=== PATIENT | female | born 1980 | race Caucasian/White ===

== ENCOUNTER → 2016-11-02 | Outpatient (REF) | payer OTHER | LOC: M LAB REF 09:48 | PROVIDERS: ATTEND Physician Assistant | DX: R50.9 Fever, unspecified (principal) ==

== ENCOUNTER → 2016-12-09 | Outpatient (CLI) | payer OTHER ==
[~2016-12-09] VITALS: Ht 160 cm; Wt 59.0 kg
[~2016-12-09] MED LIST: CALC1TAB30 PO; DICY10CA13 PO; HUMI40KI SC; IMUR50TA PO; LIDOCAINE 2% INJ 100 MG/5 ML SDV (FOR ANES.) As Ordered ONE; LISI10TA4 PO; MULT1TAB10 PO; NS 1,000 ML IV SCH; PROPOFOL 200 MG/20 ML VIAL As Ordered ONE; SPIR50TA2 PO; TRAZ100T4 PO; ZINC30TA3 PO
--- NOTE | 2016-12-09 14:19 | ROOR ---
Patient Name: Jill Westbrook Procedure Date: 12/09/2016 1:48 PM Date of : 1980 Age: 36 Room: [facility] Gender: Female Note Status: Finalized Procedure: Colonoscopy Indications: Personal history of Crohn's disease Providers: Eder LLOYD MD Referring MD: RHODA DUONG MD Requesting Provider: Medicines: Monitored Anesthesia Care Complications: No immediate complications. Procedure: Pre-Anesthesia Assessment: - The heart rate, respiratory rate, oxygen saturations, blood pressure, adequacy of pulmonary ventilation, and response to care were monitored throughout the procedure. The Colonoscope was introduced through the anus and advanced to the ileocolonic anastomosis. The colonoscopy was performed without difficulty. The patient tolerated the procedure well. The quality of the bowel preparation was good. Findings: The perianal and digital rectal examinations were normal. There was evidence of a prior end-to-end ileo-colonic anastomosis in the ascending colon. This was patent and was characterized by erosion and ulceration. The anastomosis was traversed. This was biopsied with a cold forceps for histology. The exam was otherwise without abnormality. Impression: - Patent end-to-end ileo-colonic anastomosis, characterized by 3 shallow erosions/superficial ulceration. Biopsied. - Anastomosis is otherwise widely patent and healthy in appearance. - The colon examination was otherwise normal - The examined portion of the bogdan-terminal ileum is normal for about 15 cm. . Recommendation: - Continue present medications. - Await pathology results. - Return to my office as previously scheduled. - As you are on both Imuran and Humira, you will need blood work and office visit every 1-2 months. Eder Lloyd MD Eder LLOYD MD 12/09/2016 2:19:09 PM This report has been signed electronically. Number of Addenda: 0 Note Initiated On: 12/09/2016 1:48 PM Estimated Blood Loss: Estimated blood loss: none.
[2016-12-09 14:32] VITALS: BP 105/61
== END ==
LOC: M OPP 11:36
PROVIDERS: ATTEND Internal Medicine Gastroenterology
DX: Z87.19 Personal history of other diseases of the digestive system (principal); K92.2 Gastrointestinal hemorrhage, unspecified; Z98.0 Intestinal bypass and anastomosis status; Z86.14 Personal history of Methicillin resistant Staphylococcus aureus infection; Z80.0 Family history of malignant neoplasm of digestive organs; Z79.899 Other long term (current) drug therapy

== ENCOUNTER → 2017-01-21 | Outpatient (CLI) | payer OTHER ==
[~2017-01-21] MED LIST changes: -LIDOCAINE 2% INJ 100 MG/5 ML SDV (FOR ANES.) As Ordered ONE; +NEOSPORIN OINT 0.9 GM PKT (FLOOR STOCK) As Ordered ONE; -NS 1,000 ML IV SCH; -PROPOFOL 200 MG/20 ML VIAL As Ordered ONE; +SILVER NITRATE APPLICATOR As Ordered ONE
--- NOTE | 2017-01-22 06:21 | REP ---
Clinical: Irregular menstrual bleeding. Evaluation for polyp. Technique: Transvaginal ultrasound examination with color Doppler evaluation of the ovaries was performed in conjunction with Dr. Bautista for hysterosonogram. A 5-Thai catheter was used along with 60 ml of saline injection into the endocervical canal. Examination was performed without complications. Findings: Heterogeneous anteverted uterus measures 8.1 x 3.8 x 4.9 cm. The endometrial complex excluding fluid measures 14.2 mm in thickness with a large endometrial polyp measuring 16 x 10 x 15 mm. Right ovary is normal in vascularity measuring 7.1 x 4.8 x 6.1 cm; RI equal 0.61, and includes 6.9 x 4.3 x 6.0 cm complex cyst with septations. Left ovary is normal in appearance and vascularity measuring 2.9 x 1.6 x 2.7 cm; RI equal 0.62. No pelvic fluid or adnexal mass lesion. Impression: 1. Examination demonstrates a 16 mm endometrial polyp along with 6.9 cm septated complex right ovarian cyst. Signed by Raleigh Cordova MD 01/22/2017 06:12 A
== END | disposition home or self-care (01) ==
LOC: M RADPRO 14:37
PROVIDERS: ATTEND Student in an Organized Health Care Education/Training Program
DX: N84.0 Polyp of corpus uteri (principal); N83.291 Other ovarian cyst, right side

== ENCOUNTER → 2017-01-27 | Outpatient (CLI) | payer OTHER ==
[~2017-01-27] MED LIST changes: -NEOSPORIN OINT 0.9 GM PKT (FLOOR STOCK) As Ordered ONE; -SILVER NITRATE APPLICATOR As Ordered ONE
[2017-01-27 12:51] LABS: BASO % 0.2 % (0.0-1.0); EOS % 0.4 % (0.0-3.0); LARGE UNSTAINED CELL # 0.1 K/mm3 (0.0-0.4); LARGE UNSTAINED CELL % 1.3 % (0.0-4.0); LYMPH # 1.7 K/mm3 (1.5-4.5); LYMPH % 15.3 % (24.0-44.0); MEAN CORPUSCULAR HEMOGLOBIN 33.5 pg (27.0-33.0); MEAN CORPUSCULAR HGB CONC 34.2 g/dl (32.0-36.5); MEAN CORPUSCULAR VOLUME 98.1 fl (80.0-96.0); MONO # 0.4 K/mm3 (0.0-0.8); MONO % 4.2 % (0.0-5.0); NEUTROPHILS # 7.9 K/mm3 (1.8-7.7); NEUTROPHILS % 78.6 % (36.0-66.0); PLATELET COUNT, AUTOMATED 290 k/mm3 (150-450); RED CELL DISTRIBUTION WIDTH 13.3 % (11.5-14.5)
[2017-01-27 13:22] LABS: ALBUMIN 4.3 GM/DL (3.2-5.2); ALBUMIN/GLOBULIN RATIO 1.39 (1.00-1.93); ALKALINE PHOSPHATASE 41 U/L (45-117); ALT/SGPT 23 U/L (12-78); ANION GAP 5 MEQ/L (8-16); AST/SGOT 14 U/L (15-37); BILIRUBIN,TOTAL 0.4 MG/DL (0.2-1.0); BLOOD UREA NITROGEN 15 MG/DL (7-18); CALCIUM LEVEL 9.8 MG/DL (8.5-10.1); CARBON DIOXIDE LEVEL 31 MEQ/L (21-32); CHLORIDE LEVEL 97 MEQ/L (98-107); CREATININE FOR GFR 0.72 MG/DL (0.55-1.02); GLOMERULAR FILTRATION RATE > 60.0 (>60); GLUCOSE, FASTING 88 MG/DL (70-105); POTASSIUM SERUM 3.9 MEQ/L (3.5-5.1); SODIUM LEVEL 133 MEQ/L (136-145); TOTAL PROTEIN 7.4 GM/DL (6.4-8.2)
[2017-01-27 13:42] LABS: FOLATE > 24.0 NG/ML; VITAMIN B12 LEVEL 377 PG/ML
[2017-02-01 00:06] LABS: ADALIMUMAB LEVEL 3.8 ug/mL (.); ANTI-ADALIMUMAB ABY <25 ng/mL (.)
[2017-02-09 13:44] LABS: THIOP1 SEE SEPARATE REPORT; THIOP2 SEE SEPARATE REPORT
== END ==
LOC: M LAB 11:27
PROVIDERS: ATTEND Internal Medicine Gastroenterology
DX: K50.00 Crohn's disease of small intestine without complications (principal); Z98.0 Intestinal bypass and anastomosis status

== ENCOUNTER → 2017-03-04 | Day surgery (SDC) | payer OTHER ==
[~2017-03-04] VITALS: Ht 160 cm; Wt 58.1 kg
[~2017-03-04] MED LIST changes: +DOCUSATE SODIUM 100 MG CAP PO ONE; +HYDROmorphone HCL 2 MG/ML 1ML VIAL (J1170) As Ordered ONE; -IMUR50TA PO; +IMUR50TA6 PO; +KETOROLAC 30 MG/ML VIAL (J1885) IV ONE; +KETOROLAC 60 MG/2 ML VIAL (J1885) As Ordered ONE; +LR 1,000 ML IV ONE; +LR 1,000 ML IV SCH; +MIDAZOLAM INJ 2 MG/2 ML VIAL (J2250) As Ordered ONE; +MORPHINE 2 MG/ML 1ML SYRINGE IV PRN; +ONDANSETRON 4MG/2ML VIAL (J2405) As Ordered ONE; +ONDANSETRON 4MG/2ML VIAL (J2405) IV PRN; +PROPOFOL 200 MG/20 ML VIAL As Ordered ONE; +TRAZ-136 PO; -TRAZ100T4 PO; +dexameTHASONE 4 MG/ML 1ML VIAL (J1100) As Ordered ONE; +fentaNYL 100 MCG/2 ML INJECTION (J3010) As Ordered ONE; +fentaNYL 100 MCG/2 ML INJECTION (J3010) IV PRN
[2017-03-04 11:13] LABS: MEAN CORPUSCULAR HEMOGLOBIN 32.3 pg (27.0-33.0); MEAN CORPUSCULAR HGB CONC 34.3 g/dl (32.0-36.5); MEAN CORPUSCULAR VOLUME 94.1 fl (80.0-96.0); RED CELL DISTRIBUTION WIDTH 12.8 % (11.5-14.5); WHITE BLOOD COUNT 8.7 K/mm3 (4.0-10.0)
[2017-03-04 11:34] LABS: CONTROL LINE HCG INT CTR LINE PRESENT
[2017-03-04] MEDS: PERCOCET 5MG/325MG TAB PO PRN ×2 (14:40→15:30)
[2017-03-04 16:20] VITALS: BP 118/70
--- NOTE | 2017-03-05 10:59 | RO ---
DATE OF PROCEDURE: 03/04/2017 PREOPERATIVE DIAGNOSIS: Endometrial polyp POSTOPERATIVE DIAGNOSIS: Endometrial polyp PROCEDURE: Operative hysteroscopy with polypectomy and D&C SURGEON: Dr. Ángel Bautista SCHOOL CLEANER: None ANESTHESIA: S[employer] PLANT CONSULTANT, LMA The patient is a 36-year-old, well known to this provider, who presents with a known endometrial polyp with plan for operative hysteroscopy, dilation and curettage (D and C), polypectomy. The patient underwent extensive counseling to include the risks/benefits/alternatives/indications to this procedure and informed consent was obtained. The patient was taken to the operating room where laryngeal mask airway (LMA) sedation was performed without complication. The patient was then prepped and draped in a normal sterile fashion in high lithotomy position. After a time out was performed, a sterile speculum was placed into the patient's vagina and the cervix was visualized. A single tooth tenaculum was used to grasp the anterior lip of the cervix. The cervix was then serially dilated to 14 with Hanks dilators, at which time, a MyoSure hysteroscopy device was primed and prepped and advanced to the uterine fundus with excellent visualization. Bilateral ostia were seen as well as a large posterior polyp approximately 2-3 cm in size. Using the hysteroscopic graspers and scissors, this polyp was removed. The patient then underwent a curettage without complication. A hysteroscopy after completion of this demonstrated no retaining polyp and thinned endometrial lining. Fluid deficit was 120 mL. The patient was stable to the postanesthesia care unit (PACU) without complication. Needle, lap and sponge counts were correct. The hysteroscope was removed and single tooth tenaculum was removed and all was found to be hemostatic. There was no active bleeding from the patient's cervix. [facility]
== END ==
LOC: M SDC 10:31
PROVIDERS: ATTEND Student in an Organized Health Care Education/Training Program
DX: N84.0 Polyp of corpus uteri (principal); I10 Essential (primary) hypertension; K21.9 Gastro-esophageal reflux disease without esophagitis; K50.90 Crohn's disease, unspecified, without complications; F32.9 Major depressive disorder, single episode, unspecified; Z86.14 Personal history of Methicillin resistant Staphylococcus aureus infection; Z87.891 Personal history of nicotine dependence; Z79.899 Other long term (current) drug therapy
CPT/HCPCS: 36415; 58558; 84703; 85027; 86850; 86900; 86901; 88305; J1100; J1170; J1885; J2250; J2405; J3010